=== PATIENT | female | born 1940 | race Caucasian/White ===

== ENCOUNTER → 2023-07-19 09:56 | Outpatient (REF) | payer MEDICARE, SELFPAY ==
[2023-07-19 10:27] LABS: % Basophils 0.8 % (0-2); % Eosinophils 3.5 % (0-6); % Immature Granulocytes 0.2 % (0-0.5); % Lymphocytes 18.3 % (20.5-51.1); % Monocytes 7.3 % (1.7-9.3); % Neutrophils 69.9 % (42.2-75.2); Absolute Eosinophils 0.2 10^3/uL (0-0.7); Absolute Lymphocytes 0.9 10^3/uL (1.2-3.4); Absolute Monocytes 0.4 10^3/uL (0.1-0.6); Absolute Neutrophils 3.6 10^3/uL (1.4-6.5); Hematocrit 32.9 % (37.0-47.0); Hemoglobin 11.1 g/dL (12.0-16.0); Mean Corp Hgb Conc. 33.7 g/dL (33.0-37.0); Mean Corpuscular Hgb 31.6 pg (27.0-31.0); Mean Corpuscular Volume 93.7 fL (81.0-99.0); Mean Platelet Volume 10.1 fL (7.4-10.4); Nucleated Red Blood Cells % 0 %; Platelet Count 220 10^3/uL (130-400); Red Blood Cell Count 3.51 10^6/uL (4.20-5.40); Red Cell Dist. Width 15.5 % (11.5-14.5); White Blood Cell Count 5.1 10^3/uL (4.8-10.8)
[2023-07-19 11:51] LABS: ALT (SGPT) 20 U/L (0-35); AST (SGOT) 36 U/L (14-36); Albumin 4.1 g/dl (3.5-5.0); Alkaline Phosphatase 83 U/L (38-126); Blood Urea Nitrogen 23 mg/dl (7-17); Calcium 9.2 mg/dl (8.4-10.2); Carbon Dioxide 24 mmol/L (22-30); Chloride 105 mmol/L (98-107); Glucose 85 mg/dl (70-99); Potassium 4.1 mmol/L (3.5-5.1); Sodium 136 mmol/L (135-145); Total Bilirubin 1.2 mg/dl (0.2-1.3); Total Protein 7.2 g/dl (6.3-8.2); eGFR > 60.00
== END ==
LOC: SDSPAT 09:56
PROVIDERS: ATTENDING PHYSICIAN Internal Medicine Cardiovascular Disease; FAMILY PHYSICIAN Internal Medicine; OTHER PHYSICIAN Internal Medicine Cardiovascular Disease
DX: Z01.818 Encounter for other preprocedural examination (principal); I48.21 Permanent atrial fibrillation; I35.0 Nonrheumatic aortic (valve) stenosis; I34.0 Nonrheumatic mitral (valve) insufficiency; I45.10 Unspecified right bundle-branch block
CPT/HCPCS: 36415; 80053; 85025

== ENCOUNTER 2023-07-21 15:48 | Inpatient (IN) | payer MEDICARE, SELFPAY ==
[2023-07-19 10:04] VITALS: BMI 30.6
[2023-07-21] VITALS (30 sets, daily range): BP systolic 114–184; BP diastolic 50–109; BMI 30.1
[2023-07-21] MEDS: NSS 1000 IV (11:10)
--- NOTE | 2023-07-21 11:20 | ITS.CL.CATH ---
Harness And Bag Inspector - Catheterization
Cardiac Catheterization
Procedure Report:
CARDIAC CATHETERIZATION REPORT
Date of Procedure: 07/21/2023
Referring: Kerwin Brennan MD
Indication: Symptomatic severe aortic stenosis with mild to moderate mitral regurgitation
HEMODYNAMIC DATA (RHC done at weight 186 pounds)
AO: 149/65
LV: 201/22
PCWP: 32 (v=53)
PA: 72/30
RV: 72/18
RA: 17
Oximetry: Ao 95%, PA 59%, cardiac output 3.5, cardiac index 1.8
Simultaneous left ventricular and aortic waveforms demonstrate severe aortic stenosis with mean gradient 48 mmHg and calculated YAEL 0.5 cm�
LEFT VENTRICULOGRAPHY: Severe inferior hypokinesis with EF 48%. There is 1+ mitral regurgitation
CORONARY ANGIOGRAPHY
Dominance: Right
Left Main: Calcified without focal stenosis
LAD: Moderate to severe proximal and mid LAD calcification with mild luminal irregularities
Circumflex: Mild luminal irregularities
RCA: Moderate to severe calcification of the proximal and mid RCA extending to the crux. There are mild luminal irregularities in the RCA and its tributaries
Closure Device: None-the procedure was performed via the RFA and RFV. The right radial artery was not used as the Yonathan's test was abnormal. Manual compression was used for hemostasis
Radiation dose (mGy): 3 of 6
DAP (cm2.Gy): 32.8
Fluoroscopy time: 3.7 minutes
CONCLUSIONS:
1. Elevated left and right heart filling pressures with moderate to severe pulmonary hypertension
2. Severe aortic stenosis with mean gradient 48 mmHg and calculated YAEL 0.5 cm�
3. Calcified coronary arteries without significant focal stenoses
4. Inferior hypokinesis with EF 48%
5. Mild mitral regurgitation
RECOMMENDATIONS: Evaluate for TAVR for severe symptomatic aortic stenosis. Continue current medical regimen for now. She may require the addition of diuretic therapy to her regimen
Copy to: Kerwin Brennan MD, Jb Mendoza MD
Grey Gee MD, FACC, [facility]
--- NOTE | 2023-07-21 12:00 | PTCARENOTE ---
Princess LLAMAS, TAVR coordinator, at pt bedside speaking to pt and pt's daughter.
[2023-07-21] MEDS: LASIX 20 MG IV (13:49)
--- NOTE | 2023-07-21 13:53 | PTCARENOTE ---
Addendum entered by Vangie Osuna RN 07/21/23 14:24:
While at pt bedside, Dr Gee made aware of pt's lungs with rales 1/3 up bilaterally and expiratory wheezes throughout. Pulse ox 91-94% on 2L NC
Original Note:
Dr Gee at pt bedside assessing pt and speaking to pt and pt's daughter.
--- NOTE | 2023-07-21 14:00 | PTCARENOTE ---
Pt states she is feeling more SOB. Dr Gee made aware and again at pt bedside. Pt appears to be slightly dyspneic. Dr Gee raised pt's head of bed all the way up. Pulse ox 91-92% on 2L NC. Oxygen increased to 4L NC as ordered per Dr Gee.
Lasix 20mg IVP already given as ordered. Dr Gee states to continue to monitor pt to see if there is improvement in pt's symptoms.
--- NOTE | 2023-07-21 14:07 | CONSULT.STRU ---
Consultation
-
Date/Time Consultation Requested: 07/21/2023 1100
Date/Time Consultation Performed: 07/21/2023 1130
Requesting Provider: Dr. Gee
Performing Provider: MURIEL Villalobos
Reason for Consultation: Aortic stenosis/ TAVR evaluation
Patient History
Physicians
Family Physician: Jb Mendoza
Outpatient Commercial Loan Reviewer: Kerwin Brennan
Primary Commercial Loan Reviewer: Kerwin Brennan
History of Present Illness
Patient is a very pleasant 82yo female who lives independently. She has know history of aortic stenosis and has been followed by Dr. Brennan with serial echocardiograms. A few [place] she woke up with a 'funny feeling' in her chest. She also does note
some increased fatigue and mild JC. Her echocardiogram from 01/03/2023 is notable for EF 60-65%, PG/MG of AV 67/42, YAEL 0.7, peak velocity 4.09. She was also noted to have moderate AI, Moderate MR and Severe TR. She underwent cardiac cath today
which demonstrated elevated left and right heart filling pressures with moderate to severe pulmonary hypertension. Severe aortic stenosis with mean gradient 48 mmHg and calculated YAEL 0.5 cm�. Calcified coronary arteries without significant focal
stenoses. Inferior hypokinesis with EF 48%
Mild mitral regurgitation. Request made by Dr. Gee to evaluate for TAVR.
Reviewed the pathophysiology of aortic stenosis with the patient and her daughter. Explained the treatment options of SAVR and TAVR. Explained the TAVR evaluation process including follow up BMP, CT TAVR scan, CT surgery consult and Heart Team
discussion. Provided with script for BMP next week, script and appointment for CT TAVR, Consult appointment with Dr. Last and a copy of the TAVR education booklet with contact information. Allowed for and answered questions.
Past Medical History
Past Medical History: Atrial Fib, JC, HTN, Valvular Disease (Severe , Mod AI, Mod MR, Severe TR) and Other (DJD, Obesity, Neuropathy, Uterine fibroid)
Past Surgical History
Past Surgical History: Cholecystectomy (1990) and Other (, PPM- [employer] 2008, changed 2020, Right BOO- Dr. Lovell2023, right cataract surgery)
Dental History
Regular dental care -Dr. Alfonso [phone]
Family History
Mother: at Age
Father: at Age
Social History
Alcohol: None
Drug: None
Tobacco: Non-Smoker
Personal: Single and
Living: Alone
Employment: Retired
Allergies
Allergy/AdvReac Type Severity Reaction Status Date / Time
latex [Latex] Allergy Rash Verified 07/21/23 08:45
Yyngpmo-TFD-MzK Reductase AdvReac Unknown liver Verified 07/21/23 08:45
Inhibitor enzymes
[Dglscfa-Apq-Bzj Reductase elevated
Inhibitor]
Home Medications
Medication Instructions Recorded Confirmed Type
dabigatran etexilate 150 mg 150 mg PO BID ##0 06/15/20 07/21/23 Rx
capsule (Pradaxa)
metoprolol tartrate 100 mg tablet 100 mg PO BID Heart 06/15/20 07/21/23 History
disease/condition
multivitamin 1 tab PO QPM Supplement 06/15/20 07/21/23 History
amlodipine 5 mg tablet 5 mg PO DAILY Blood pressure 06/16/22 07/21/23 History
aspirin 81 mg tablet,delayed 81 mg PO DAILY #60 tabs 06/29/22 07/21/23 Rx
release
antiseptic solution 1 pad topical DAILY 07/21/23 07/21/23 History
biotin 5,000 mcg chewable tablet 5,000 mcg PO QPM 07/21/23 07/21/23 History
lisinopril 40 mg tablet 40 mg PO QPM 07/21/23 07/21/23 History
peg 400-propylene glycol (PF) 0.4 1 drp ophthalmic (eye) DAILY 07/21/23 07/21/23 History
%-0.3 % eye drops in a dropperette
(Systane (PF))
rosuvastatin 5 mg tablet 5 mg PO DAILY 07/21/23 07/21/23 History
STS%
STS %: 5.27%
Review of Systems
-
History Source: Patient
General: Reports Fatigue
HEENT: Reports No Symptoms
Respiratory: Reports JC
Cardiac: Reports Known Vascular Disease (h/o Right CEA 2022) and Other (a-fib)
Abdomen/GI: Reports No Symptoms
: Reports No Symptoms
Musculoskeletal: Reports No Symptoms
Skin: Reports No Symptoms
Neurological: Reports No Symptoms
Vascular: Reports No Symptoms
Physical Exam
Vital Signs
Temp 98.6 F 07/21/23 08:35
Temp route: Oral 07/21/23 08:35
Pulse 68 07/21/23 13:49
Resp Rate 16 07/21/23 12:45
Blood pressure 164/55 07/21/23 13:49
Blood pressure extremity used: Right upper arm 07/21/23 12:15
Position: Lying 07/21/23 12:15
MAP (cuff-Yuri Monitor) 90 07/21/23 12:45
SaO2 93 07/21/23 12:45
Nasal Cannula flow liters per minute 2 07/21/23 12:45
Oxygen Mode of Delivery Room air 07/21/23 11:45
Can the patient verbally communicate their pain? Yes 07/21/23 12:45
Actual Weight 84.6 kg 07/21/23 08:44
Body Mass Index (BMI) 30.1 07/21/23 08:44
Labs
07/19/2023:
BUN/CREAT: 23/0.7
GFR: >60
H/H: 11.1/32.9
Diagnostic Studies
12/28/2022 Echocardiogram:
CONCLUSIONS
�Normal left ventricular size and systolic function.LV ejection fraction is 60-
�65%
�Normal right ventricular size and function.Pacer wire seen in right ventricle.
�Marked biatrial enlargement.
�Moderate mitral regurgitation.
�Severe aortic stenosis with moderate AI
�Severe tricuspid regurgitation (likely pacer wire mediated).
�Estimated pulmonary artery pressure of 84 mmHg.
�The aortic root is of normal size.
�Compared to prior study of 01/18/22 severe aortic stenosis is unchanged; TR may
�be increased from moderate, and previous estimated PA pressure was 65 mmHg.
�
�
�Indications:
�Nonrheumatic aortic (valve) stenosis, Nonrheumatic mitral (valve) insufficiency
�
�Rhythm: � � � � � � � � Atrial fibrillation
�
�Portable Study: � � � � No
�
�Technical Quality:� � � Fair
�
�Contrast: � � None
�
�BP:� � 160 � / � 68
�
�PROCEDURE
�A complete Transthoracic Echocardiogram was performed utilizing two-dimensional
�evaluation with color flow and spectral Doppler analysis.
�
�FINDINGS
�
�Left Ventricle
�Normal left ventricular size and systolic function. Mild concentric left
�ventricular hypertrophy.� No regional wall motion abnormalities are seen. LV
�ejection fraction is 60-65% by Jade's method of discs. Diastolic function
�indeterminate.
�
�Right Ventricle
�Normal right ventricular size and function. Pacer wire seen in right ventricle.
�
�Left Atrium
�Indexed LA volume is severely abnormal (> 48 mL/m2).
�
�Right Atrium
�Moderately dilated right atrium.
�
�Mitral Valve
�Mitral valve opens normally. Thickened mitral valve leaflets. Moderate mitral
�regurgitation.
�
�Aortic Valve
�Thickened aortic valve with restricted leaflet motion. Severe aortic stenosis.
�The peak gradient across the valve is 67 mmHg with a mean of 42 mmHg. Using a
�LVOT diameter of 1.9 cm, the YAEL is 0.7 cm sq. Moderate aortic regurgitation.
�
�Tricuspid Valve
�Tricuspid valve opens normally. Severe tricuspid regurgitation (likely pacer
�wire mediated). Estimated pulmonary artery pressure of 84 mmHg assuming a right
�atrial pressure of 15 mmHg.
�
�Pulmonic Valve
�Structurally normal pulmonic valve. Mild pulmonic regurgitation.
�
�Pericardium\\Pleura
�Normal pericardium without effusion.
�
�Aorta
�The aortic root is of normal size. Normal ascending aorta.
�
�Other Finding
�The IVC is dilated and does not collapse. Interatrial septum is intact with no
�evidence of shunting by color flow Doppler.
�
�MEASUREMENTS� (Male / Female) Normal Values
�2D ECHO
�LV Diastolic Diameter PLAX� � � � 4.3 cm� � � � � � � � 4.2 - 5.9 / 3.9 - 5.3 cm
�LV Systolic Diameter PLAX � � � � 2.9 cm� � � � � � � �
�IVS Diastolic Thickness � � � � � 1.0 cm� � � � � � � � 0.6 - 1.0 / 0.6 - 0.9 cm
�LVPW Diastolic Thickness� � � � � 1.0 cm� � � � � � � � 0.6 - 1.0 / 0.6 - 0.9 cm
�LV Relative Wall Thickness� � � � 0.5 � � � � � � � � �
�LVOT Diameter � � � � � � � � � � 1.9 cm� � � � � � � �
�LV Ejection Fraction MOD BP � � � 61.0 %� � � � � � � � >= 55� %
�LA Area 4C View � � � � � � � � � 35.9 cm2� � � � � � � <= 20 cm2
�LA Length 4C� � � � � � � � � � � 7.2 cm� � � � � � � �
�LA Volume � � � � � � � � � � � � 145.0 cm3 � � � � � � 18 - 58 / 22 - 52 cm3
�Ascending Aorta Diameter� � � � � 3.2 cm� � � � � � � �
�
�M-MODE
�Aortic Root Diameter MM � � � � � 2.8 cm� � � � � � � �
�LA Systolic Diameter MM � � � � � 6.1 cm� � � � � � � �
�LA Ao Ratio MM� � � � � � � � � � 2.2 � � � � � � � � �
�
�DOPPLER
�AV Peak Velocity� � � � � � � � � 409.0 cm/s� � � � � �
�AV Peak Gradient� � � � � � � � � 66.9 mmHg � � � � � �
�AV Mean Gradient� � � � � � � � � 41.0 mmHg � � � � � �
�AV Velocity Time Integral � � � � 103.8 cm� � � � � � �
�AI Peak Velocity� � � � � � � � � 434.0 cm/s� � � � � �
�AI Peak Gradient� � � � � � � � � 75.3 mmHg � � � � � �
�AI Pressure Half Time � � � � � � 454.5 ms� � � � � � �
�LVOT Peak Velocity� � � � � � � � 99.4 cm/s � � � � � �
�LVOT Peak Gradient� � � � � � � � 4.0 mmHg� � � � � � �
�LVOT Velocity Time Integral � � � 26.6 cm � � � � � � �
�AV Area Cont Eq vti � � � � � � � 0.7 cm2 � � � � � � �
�AV Area Cont Eq pk� � � � � � � � 0.7 cm2 � � � � � � �
�TR Peak Velocity� � � � � � � � � 349.0 cm/s� � � � � �
�TR Peak Gradient� � � � � � � � � 48.7 mmHg � � � � � �
�
�
07/21/2023 Cardiac Catheterization:
�HEMODYNAMIC DATA (RHC done at weight 186 pounds)
AO: 149/65
LV: 201/22
PCWP: 32 (v=53)
PA: 72/30
RV: 72/18
RA: 17
Oximetry: Ao 95%, PA 59%, cardiac output 3.5, cardiac index 1.8
Simultaneous left ventricular and aortic waveforms demonstrate severe aortic stenosis with mean gradient 48 mmHg and calculated YAEL 0.5 cm�
LEFT VENTRICULOGRAPHY: Severe inferior hypokinesis with EF 48%.� There is 1+ mitral regurgitation
CORONARY ANGIOGRAPHY
Dominance: Right
Left Main: Calcified without focal stenosis
LAD: Moderate to severe proximal and mid LAD calcification with mild luminal irregularities
Circumflex: Mild luminal irregularities
RCA: Moderate to severe calcification of the proximal and mid RCA extending to the crux.� There are mild luminal irregularities in the RCA and its tributaries
Closure Device: None-the procedure was performed via the RFA and RFV.� The right radial artery was not used as the Yonathan's test was abnormal.� Manual compression was used for hemostasis
Radiation dose (mGy): 3 of 6
DAP (cm2.Gy): 32.8
Fluoroscopy time: 3.7 minutes
CONCLUSIONS:
1.� Elevated left and right heart filling pressures with moderate to severe pulmonary hypertension
2.� Severe aortic stenosis with mean gradient 48 mmHg and calculated YAEL 0.5 cm�
3.� Calcified coronary arteries without significant focal stenoses
4.� Inferior hypokinesis with EF 48%
5.� Mild mitral regurgitation
RECOMMENDATIONS: Evaluate for TAVR� for severe symptomatic aortic stenosis.� Continue current medical regimen for now.� She may require the addition of diuretic therapy to her regimen
Exam
General: Well Developed and Well Nourished
HEENT: Normocephalic and Moist Mucous Membranes
Neck: Trachea Midline
Respiratory: Clear
Cardiac: Irregular Rhythm and Murmur (Grade III/)
GI: Soft, Non Tender and Normal Bowel Sounds
Rectal: Deferred by Provider
Skin: Warm
Neuro: Awake and AO x 3
Extremities: Lower Level Edema
Psych: Calm
Assessment / Plan
-
Severe Aortic stenosis:
��������������� Continue evaluation for TAVR as an outpatient
��������������� BMP 07/27/2023 at [facility]
��������������� CT TAVR scan 08/10/2023 at [facility] at
��������������� CT surgery consult with Dr. Last on 08/10/2023
��������������� Heart team discussion at [facility]
Dental Clearance
Data Reviewed
-
EKG: Report Reviewed by me
Interactive Media Designer: Discussed with Physician
Echo: Report Reviewed by me
Labs: Labs Reviewed by me
Old Records: Reviewed (Dr. Brennan office note)
Total Time Spent with Patient (in minutes): 45
--- NOTE | 2023-07-21 14:08 | PTCARENOTE ---
Emerita LLAMAS at pt bedside assessing pt and speaking to pt and pt's daughter.
--- NOTE | 2023-07-21 14:55 | PTCARENOTE ---
Addendum entered by Vangie Osuna RN 07/21/23 15:14:
Below note occurred at 1335 and not 1435 as documented. IVF's also turned off as ordered per Emerita LLAMAS.
Original Note:
Pt's pulse ox 89-92% on 2L NC. Pt's head of bed raised 20 degrees. Right groin dressing clean, dry, and intact. No bleeding or hematoma noted. Pt's lungs with rales 1/3 bilaterally and expiratory wheezes throughout. Emerita LLAMAS made aware and
ordered lasix 20 mg IVP. No respiratory treatment ordered at this time. Will administer lasix and continue to monitor pt.
--- NOTE | 2023-07-21 15:20 | PTCARENOTE ---
Emerita LLAMAS at pt bedside assessing pt. Pt remains at 4L NC. Pulse ox 94% on 4L NC. Emerita LLAMAS states pt is to be admitted to be monitored overnight. Pt is to be admitted. Will continue to monitor.
--- NOTE | 2023-07-21 16:18 | CM ---
Chart reviewed. Patient is independent of ADLS, lives alone at [facility], 2nd floor apartment with elevator access, ambulates with a SPC. Patient is not current with VN, but is interested. [facility]
--- NOTE | 2023-07-21 17:16 | PTCARENOTE ---
Pt received at 1600 post procedure. Right groin site drly and intact with no hematoma. Continues with mild sob. O2 on at 4LNC, reduced to 2LNC, sat 92 - 93%. Pt assisted to the bathroom, gait steady with a cane. Denies any pain or discomfort.
[2023-07-21] MEDS: ZESTRIL 40 MG PO (17:55)
[2023-07-21] MEDS: PRADAXA 150 MG PO (19:28)
[2023-07-21] MEDS: COREG 6.25 MG PO (19:28)
[2023-07-21] MEDS: DESENEX/MITRAZOL/ZEASORB 1 APPLIC TOPICAL (21:49)
[2023-07-22] VITALS (7 sets, daily range): BP systolic 101–121; BP diastolic 50–82; BMI 29.1
--- NOTE | 2023-07-22 01:04 | PTCARENOTE ---
Tele remains Afib and occasional Vpaced. VSS, and currently sating 92% RA. Denies any pain or discomfort. Right groin dressing intact. Patient aware of POC, call calderon in reach.
[2023-07-22 05:23] LABS: Hematocrit 31.9 % (37.0-47.0); Hemoglobin 10.8 g/dL (12.0-16.0); Mean Corp Hgb Conc. 33.9 g/dL (33.0-37.0); Mean Corpuscular Hgb 31.4 pg (27.0-31.0); Mean Corpuscular Volume 92.7 fL (81.0-99.0); Mean Platelet Volume 10.4 fL (7.4-10.4); Platelet Count 208 10^3/uL (130-400); Red Blood Cell Count 3.44 10^6/uL (4.20-5.40); Red Cell Dist. Width 15.3 % (11.5-14.5); White Blood Cell Count 6.3 10^3/uL (4.8-10.8)
[2023-07-22 05:45] LABS: Blood Urea Nitrogen 22 mg/dl (7-17); Calcium 9.2 mg/dl (8.4-10.2); Carbon Dioxide 24 mmol/L (22-30); Chloride 105 mmol/L (98-107); Estimated Creatinine Clearance 81 ml/min; Glucose 91 mg/dl (70-99); HDL Cholesterol 55 mg/dl; LDL Cholesterol, Calculated 39 mg/dl; Potassium 4.3 mmol/L (3.5-5.1); Sodium 137 mmol/L (135-145); Total Cholesterol 109 mg/dl (50-199); Triglyceride 75 mg/dl (10-149); Very Low Density Lipoprotein 15 mg/dl (0-30); eGFR > 60.00
[2023-07-22 05:52] LABS: NT-proBNP 5050 pg/ml
[2023-07-22] MEDS: KCL 20 MEQ PO (08:39)
[2023-07-22] MEDS: PRADAXA 150 MG PO ×2 (08:39→20:38)
[2023-07-22] MEDS: ASPIR LOW (ENTERIC COATED) 81 MG PO (08:39)
[2023-07-22] MEDS: CRESTOR 5 MG PO (08:40)
[2023-07-22] MEDS: DESENEX/MITRAZOL/ZEASORB 1 APPLIC TOPICAL ×2 (08:40→20:38)
[2023-07-22] MEDS: NORVASC 5 MG PO (08:40)
[2023-07-22] MEDS: COREG 6.25 MG PO ×2 (08:40→20:38)
[2023-07-22] MEDS: LASIX 40 MG IV (08:41)
--- NOTE | 2023-07-22 09:31 | W.PN.CD ---
Today's Communication / Plan
-
Con't IV diuresis
follow up labs in am
hold amlodipine with decreased BP's and severe
Impression / Plan
-
Pt feels SOB much better. LE edema has improved. She thinks weight prior to admit was around 186 lbs.
Severe :
-TAVR w/u in progress
-s/p LHC with calcified coronaries without significant focal stenosis
New HFpEF in setting of :
-admitted for IV diuresis
-pt feeling improved
-weight 07/21 84.6 kg now 81.7
-plan OP lasix and close follow up.
Permanent AF:
-rate control, on pradaxa.
SSS/AV bolck:
-PPM
Carotid disease:
-s/p R CEA 06/28/22
-statin
Mod MR/Severe TR
HTN:
-coreg added
-BP's decreased with diuresis and coreg
-hold amlodipine
Physical Exam
Vital Signs/Labs
Vital Signs
Temp Pulse Resp BP Pulse Ox
98.2 F 69 16 106/52 94
07/22/23 07:39 07/22/23 07:39 07/22/23 07:39 07/22/23 04:10 07/22/23 07:39
07/21/23 07/22/23 07/23/23
06:59 06:59 06:59
Actual Weight 81.7 kg
07/22/23 04:31
07/22/23 04:31
Triglycerides 75 mg/dl (10-149) 07/22/23 04:31
LDL Cholesterol, Calc 39 mg/dl 07/22/23 04:31
VLDL Cholesterol, Calc 15 mg/dl (0-30) 07/22/23 04:31
HDL Cholesterol 55 mg/dl 07/22/23 04:31
03/16/24
04:31
Syf-L-Dshevfuiuqi Pept 5050
Physical Exam
Constitutional: No acute distress
Cardiovascular: Rhythm/rate is irregular and Pedal edema present (mild bilat LE )
Respiratory: Respiratory effort normal and Lungs clear to auscul.
GI: Soft, Non tender and Normal bowel sounds
Neuro/Psych: AO x 3
Data Reviewed
-
Date of Service: July 22, 2023
EKG: Tracing Personally Visualized and interpreted (AF 73 bpm, ST and T wave abn ) and Other (Tele AF 80-90's )
Labs: Labs Reviewed by me and Labs Ordered by me
Old Records: Reviewed (OP cardiology notes)
--- NOTE | 2023-07-22 12:26 | W.DS.TRANS ---
DC Summary - Assistant Activities Director
-
Discharge Instructions:
Sleep Apnea Risk Intermediate
Discharge Diagnosis/Procedures Cardiac catheterization
Diet Low Cholesterol
Activity As tolerated
Driving Restrictions No driving for 24 hours
Blood Work PLEASE GET YOUR LAB WORK NEXT WEEK
Others Tests YOUR CT SCAN IS SCHEDULED FOR 08/10/2023 @ 9:45 AT
[facility]. NOTHING TO EAT OR DRINK 3
HOURS BEFORE YOUR SCAN. PLEASE BRING A LIST OF
YOUR MEDICATIONS. YOU MAY TAKE YOUR MORNING
MEDICATIONS BEFORE YOUR COME IN FOR YOUR SCAN.
YOU WILL NEED DENTAL CLEARANCE PRIOR TO YOUR
VALVE REPLACEMENT
Instructions:
Stand-Alone Forms: DC Instructions- Cath/EP Lab
Changes to Home Medications: Yes
Discharge Medications:
DC Medications w/original date entered in [employer]
dabigatran etexilate 150 mg capsule (Pradaxa) 150 mg PO BID ##0 06/15/20
multivitamin 1 tab PO QPM Supplement 06/15/20
aspirin 81 mg tablet,delayed release 81 mg PO DAILY #60 tabs 06/29/22
antiseptic solution 1 pad topical DAILY 07/21/23
biotin 5,000 mcg chewable tablet 5,000 mcg PO QPM Supplement 07/21/23
lisinopril 40 mg tablet 40 mg PO QPM Blood Pressure 07/21/23
peg 400-propylene glycol (PF) 0.4 %-0.3 % eye drops in a dropperette (Systane (PF)) 1 drp ophthalmic (eye) DAILY Eye Condition 07/21/23
rosuvastatin 5 mg tablet 5 mg PO DAILY High Cholesterol 07/21/23
Home Medication Changes
Stop amlodipine
Stop metoprolol
New carvedilol 6.25mg 1 tab by mouth twice daily
New furosemide 20mg by mouth daily
Pending Results: No
[2023-07-22] MEDS: ZESTRIL 40 MG PO (16:52)
--- NOTE | 2023-07-22 16:53 | PTCARENOTE ---
assessment as documented, stable with no complaints. OOB most of day.
[2023-07-23 04:37] VITALS: BP 112/47
[2023-07-23 05:02] LABS: Hematocrit 28.3 % (37.0-47.0); Hemoglobin 9.6 g/dL (12.0-16.0); Mean Corp Hgb Conc. 33.9 g/dL (33.0-37.0); Mean Corpuscular Hgb 31.4 pg (27.0-31.0); Mean Corpuscular Volume 92.5 fL (81.0-99.0); Mean Platelet Volume 10.1 fL (7.4-10.4); Platelet Count 177 10^3/uL (130-400); Red Blood Cell Count 3.06 10^6/uL (4.20-5.40); Red Cell Dist. Width 15.3 % (11.5-14.5); White Blood Cell Count 4.1 10^3/uL (4.8-10.8)
[2023-07-23 05:25] LABS: Blood Urea Nitrogen 29 mg/dl (7-17); Calcium 8.8 mg/dl (8.4-10.2); Carbon Dioxide 25 mmol/L (22-30); Chloride 103 mmol/L (98-107); Estimated Creatinine Clearance 69 ml/min; Glucose 91 mg/dl (70-99); Sodium 136 mmol/L (135-145); eGFR > 60.00
[2023-07-23 05:53] VITALS: BMI 28.9
[2023-07-23 06:59] VITALS: BP 120/46
--- NOTE | 2023-07-23 08:16 | W.PN.CD ---
Today's Communication / Plan
-
discharge today
Impression / Plan
-
Severe :
-TAVR w/u in progress
-s/p LHC with calcified coronaries without significant focal stenosis
New HFpEF in setting of :
-d/c on lasix 20 mg po daily
-pt feeling improved
-weight 07/21 84.6 kg now 81.7
-plan OP lasix and close follow up.
Permanent AF:
-rate control, on pradaxa.
SSS/AV bolck:
-PPM
Carotid disease:
-s/p R CEA 06/28/22
-statin
Mod MR/Severe TR
HTN:
-coreg added
-BP's decreased with diuresis and coreg
-hold amlodipine
Physical Exam
Vital Signs/Labs
Vital Signs
Temp Pulse Resp BP Pulse Ox
98.5 F 80 20 112/47 96
07/23/23 06:56 07/23/23 05:00 07/23/23 06:56 07/23/23 04:37 07/23/23 06:56
07/22/23 07/23/23 07/24/23
06:59 06:59 06:59
Actual Weight 180 lb 1.883 oz 178 lb 12.718 oz
07/23/23 04:42
07/23/23 04:42
Triglycerides 75 mg/dl (10-149) 07/22/23 04:31
LDL Cholesterol, Calc 39 mg/dl 07/22/23 04:31
VLDL Cholesterol, Calc 15 mg/dl (0-30) 07/22/23 04:31
HDL Cholesterol 55 mg/dl 07/22/23 04:31
07/22/23
04:31
Mrj-G-Jfnkobjcnid Pept 5050
Physical Exam
Constitutional: No acute distress
EENT: Anicteric
Cardiovascular: Rhythm & rate is regular and Systolic murmur present
Respiratory: Respiratory effort normal and Lungs clear to auscul.
GI: Soft
Neuro/Psych: AO x 3
Data Reviewed
-
Date of Service: July 23, 2023
EKG: Tracing Personally Visualized and interpreted
Labs: Labs Reviewed by me
[2023-07-23] MEDS: CRESTOR 5 MG PO (08:21)
[2023-07-23] MEDS: KCL 20 MEQ PO (08:22)
[2023-07-23] MEDS: PRADAXA 150 MG PO (08:22)
[2023-07-23] MEDS: ASPIR LOW (ENTERIC COATED) 81 MG PO (08:22)
[2023-07-23] MEDS: LASIX 40 MG IV (08:22)
[2023-07-23] MEDS: COREG 6.25 MG PO (08:22)
[2023-07-23] MEDS: FLUSH (NSS) 1 FLUSH IV (08:23)
[2023-07-23] MEDS: DESENEX/MITRAZOL/ZEASORB 1 APPLIC TOPICAL (08:23)
[2023-07-23 11:31] VITALS: BP 115/43
--- NOTE | 2023-07-23 15:14 | PTCARENOTE ---
D/C instructions given to patient and daughter, both verbalizes understanding. patient did ask if she needs to take potassium with her lasix, TT Dr. Fields and he replied no. faxed D/C instructions to [facility]. telemetry D/C'd, INT D/C'd, personal
belongings packed and sent home with patient. D/C to home via wc accompanied by staff.
== END 2023-07-23 15:30 | disposition home or self-care (01) | DRG 287 ==
LOC: IVU 15:48
PROVIDERS: Nurse Practitioner; ADMITTING PHYSICIAN Internal Medicine Cardiovascular Disease; FAMILY PHYSICIAN Internal Medicine
PROC: B2111ZZ Fluoroscopy of Multiple Coronary Arteries using Low Osmolar Contrast (ICD-10-PCS; 2023-07-21)
PROC: B2141ZZ Fluoroscopy of Right Heart using Low Osmolar Contrast (ICD-10-PCS; 2023-07-21)
PROC: 4A023N8 Measurement of Cardiac Sampling and Pressure, Bilateral, Percutaneous Approach (ICD-10-PCS; 2023-07-21)
DX: I11.0 Hypertensive heart disease with heart failure (principal); I48.21 Permanent atrial fibrillation; I50.30 Unspecified diastolic (congestive) heart failure; I08.3 Combined rheumatic disorders of mitral, aortic and tricuspid valves; Z79.01 Long term (current) use of anticoagulants; G62.9 Polyneuropathy, unspecified; I27.20 Pulmonary hypertension, unspecified
CPT/HCPCS: 36415; 80048; 80053; 80061; 83880; 85025; 85027; 93005; 93460; C1894; Q9967

== ENCOUNTER → 2023-07-27 13:38 | Outpatient (REF) | payer MEDICARE, SELFPAY ==
[2023-07-27 14:50] LABS: Blood Urea Nitrogen 29 mg/dl (7-17); Calcium 9.9 mg/dl (8.4-10.2); Carbon Dioxide 26 mmol/L (22-30); Chloride 100 mmol/L (98-107); Glucose 97 mg/dl (70-99); Potassium 4.4 mmol/L (3.5-5.1); Sodium 136 mmol/L (135-145); eGFR > 60.00
== END ==
LOC: REG 13:38
PROVIDERS: ATTENDING PHYSICIAN Nurse Practitioner Acute Care; FAMILY PHYSICIAN Internal Medicine
DX: I35.0 Nonrheumatic aortic (valve) stenosis (principal)
CPT/HCPCS: 36415; 80048

== ENCOUNTER → 2023-08-10 09:48 | Outpatient (REF) | payer MEDICARE, SELFPAY ==
--- NOTE | 2023-08-21 10:54 | OID.L.PAT ---
Pulmonary Nodule Pat Letter
- -
08/21/23
CHARLOTTE RANGEL
[address]
[facility] [address]
[place], [place] [address]
Padilla PORTER,
A pulmonary nodule was seen on an imaging study done by [facility]. This was reviewed by the [facility] Pulmonary Nodule Advisory Board and the following recommendation was made:
Recommendation: CT of the Chest in 3 months
If you have any questions, please do not hesitate to contact your primary care physician. If you are in need of a Physician, you can go to [email or web address] and click on 'Find a Provider'. Type 'Family Medicine' in the search.
Oncology Nurse Navigator
[facility]
[phone]
--- NOTE | 2023-08-21 10:56 | OID.L.REC ---
Pulmonary Nodule Follow Up
- Recommendation
08/21/23
Pulmonary Nodule Review Recommendations
Your patient, CHARLOTTE RANGEL, had a pulmonary nodule on an imaging study done on 08/10/2023 in the [facility].
This was reviewed by the [facility] Pulmonary Nodule Advisory Board and the following recommendation was made:
Recommendation: CT of the Chest in 3 months
If you have any questions please do not hesitate to contact us.
Sincerely,
Oncology Nurse Navigator
[facility]
[phone]
== END ==
LOC: RAD 09:48
PROVIDERS: ATTENDING PHYSICIAN Nurse Practitioner Acute Care; FAMILY PHYSICIAN Internal Medicine; REFERRING PHYSICIAN Nurse Practitioner Adult Health
DX: I35.0 Nonrheumatic aortic (valve) stenosis (principal)
CPT/HCPCS: 74174; 75572; Q9967

== ENCOUNTER → 2023-08-22 10:51 | Outpatient (REF) | payer MEDICARE, SELFPAY | LOC: RAD 10:51 | PROVIDERS: ATTENDING PHYSICIAN Surgery Vascular Surgery; FAMILY PHYSICIAN Internal Medicine | DX: I65.23 Occlusion and stenosis of bilateral carotid arteries (principal) | CPT/HCPCS: 93880 ==

== ENCOUNTER 2023-09-14 05:15 | Inpatient (IN) | payer MEDICARE, SELFPAY ==
--- NOTE | 2023-08-30 10:25 | HPS.HSE ---
Family Physician
-
Family Physician: Jb Mendoza
Cardiology: Kerwin Brennan
Chief Complaint
-
Fatigue and HARTMAN
History of Present Illness
Tiffany Reese is a pleasant 83-year-old female with known progressive aortic valve stenosis. Her most recent echocardiogram was notable for a peak/mean gradient of 67/41 mmHg. YAEL was calculated to be 0.7 and peak velocity was just above 4 m/s.
Her left heart catheterization revealed calcified coronary arteries without significant coronary disease or stenosis. An invasive mean gradient was performed and revealed a mean gradient of 48 calculating out to an YAEL of 0.5, cardiac index that
time was 1.8 with severely elevated right and left heart pressures with moderate to severe pulmonary hypertension. From a symptomatology standpoint, she describes some fatigue, hartman. In comparison to 1 year ago, she feels worse and has had an episode
of volume overload/edema following her cardiac cath, requiring diuresis. Functionally, she is good. She does need a cane to ambulate secondary to lower extremity neuropathy. Her studies were reviewed and case discussed by the heart team at the
shared decision making meeting and TAVR was felt to be the appropriate treatment.
Patient seen and assessed in preadmission testing. Risks of TAVR including bleeding and stroke were reviewed. Patient has a PPM. Allowed for and answered questions. Patient will arrive at 0530 on 09/14/2023 for her TAVR procedure. Last dose of Pradaxa
will be Sunday 09/10 and she will continue on her aspirin 81mg daily and take the morning of her TAVR prior to arrival. She is aware she will receive a call on 09/13/2023 to review and confirm procedure time. Allowed for and answered questions.
Medical History
Past Medical History
Past Medical History: Reports Arrhythmia (A-fib (C2V: 5) -Pradaxa), CHF, HTN, Hypercholesterolemia, Valvular Disease (Aortic stenosis, Mitral Regurgitation) and Other (Neuropathy, Obesity, Right carotid stenosis, uterine fibroids)
Past Surgical History: Reports Cardiac (Single chamber Medtronic PPM (2008, Changed 2020)), Cholecystectomy (1990) and Other
Additional Past Surgical History:
Right carotid endarterectomy (2022)
Right cataract surgery (2022)
Social History
Tobacco: Non-smoker
Alcohol: None
Drug: None
Personal: Single
Living: Alone (Daughter helps with care)
Employment: Retired
Family History
Family History: Not pertinent
Allergies / Home Medications
Allergies reflects when Allergies were last updated in [employer].
Home Medications with original date entered in [employer]
Allergy/Medication List:
Allergies:
Latex
Statins
Medications:
Acetaminophen 500 MG Tablet 1 tablet as needed Orally every 6 hrs.�������
Amoxicillin 500 MG Capsule 4 Orally 1 hour before proceedure, Notes: PRN.�������
Aspirin 81 81 MG Tablet Delayed Release 1 tablet Orally Once a day.�������
Biotin 5000 MCG Capsule 1 capsule Orally Once a day.�������
Carvedilol 6.25 MG Tablet 1 tablet with food Orally Twice a day.�������
Colace(Docusate Sodium) 100 MG Capsule 1 capsule as needed Orally Once a day.�������
Daily Multiple Vitamins(Multiple Vitamin) - Tablet 1 tablet Orally Once a day.�������
Lasix(Furosemide) 20 MG Tablet 1 tablet Orally Once every other day.�������
Lisinopril 40 MG Tablet TAKE 1 TABLET BY MOUTH EVERY DAY.�������
OcuSoft Dry Eye.�������
Pradaxa(Dabigatran Etexilate Mesylate) 150 MG Capsule 1 capsule Orally Twice a day.�������
Rosuvastatin Calcium 5 MG Tablet 1 tablet Orally Once a day.�������
Systane(Polyethyl Glycol-Propyl Glycol) 0.4-0.3 % Solution as directed Ophthalmic.�������
Triamcinolone Acetonide 0.1 % Ointment 1 application to affected area Externally Twice a day as needed, Notes: PRN.
Review of Systems
-
History Source: Patient
Constitutional: Reports Fatigue
EENT: Reports No Symptoms
Respiratory: Reports No Symptoms
Cardiac: Reports No Symptoms
Abdomen/GI: Reports No Symptoms
: Reports No Symptoms
Musculoskeletal: Reports Edema (chronic bilateral LE edema. Left > Right)
Skin: Reports No Symptoms
Neurological: Reports No Symptoms
Endocrine: Reports No Symptoms
Hematologic/Lymphatic: Reports No Symptoms
Psych: Reports No Symptoms
Physical Exam
Physical Exam
General: Well Developed, Well Nourished, No Apparent Distress and Comfortable
HEENT: NormoCephalic and Moist mucous membranes
Respiratory: Clear and Non Labored Respirations
Cardiac: S1/S2, Irregular Rhythm and Murmur (Grade III/)
Breast: Deferred by me
GI: Soft, Non Tender, Non Distended and Normal Bowel Sounds
Rectal: Deferred by Provider
Genito-urinary: Deferred by me
Musculoskeletal: No Clubbing, No Cyanosis, Edema, Left Lower Extremity (+2-3 pitting) and Edema, Right Lower Extremity (+2 pitting)
Skin: Warm
Neuro: AO x 3, No Motor Deficits and Nonfocal/grossly intact
Psych: Calm and Intact Judgment/Insight
Laboratory Results
-
H/H: 10.0/ 29.5
BUN/Creat: 28/0.7
GFR > 60
Albumin : 3.9
Data Reviewed
-
Diagnostic Radiology: Report Reviewed by me (Chest X-ray)
CT Scan: Report Reviewed by me (Reviewed TAVR CT report as well as the incidental findings. Copy of report and images given to patient for follow up with PCP on 09/03.)
Medical Tests (Nuc Med, Echo, EKG etc): Report Reviewed by me (EKG - afib with competing junctional pacemaker)
Lab Data: Labs Reviewed by me
Old Records: Reviewed (micro lab analyst report, CT surgery consult note)
Impression/Plan
-
IMPRESSION:
Severe, symptomatic aortic stenosis
PLAN:
-TF-TAVR utilizing an Evolut valve
-POD #1/#30 echocardiogram
-Cardiac rehab consult
-Resume Pradaxa for A-fib when appropriate
[2023-08-30 12:14] VITALS: BMI 27.8
[2023-08-30 13:08] LABS: Urine Albumin Negative (Neg - Trace); Urine Bilirubin Negative (Negative); Urine Character Clear (Clear); Urine Color Yellow; Urine Glucose Negative (Negative); Urine Ketone Trace (Negative); Urine Leukocyte Negative (Negative); Urine Nitrite Negative (Negative); Urine Occult Blood Negative (Negative); Urine Urobilinogen Negative (Neg - 1+)
[2023-08-30 13:10] LABS: % Basophils 0.4 % (0-2); % Eosinophils 4.5 % (0-6); % Immature Granulocytes 0.2 % (0-0.5); % Lymphocytes 13.2 % (20.5-51.1); % Monocytes 7.2 % (1.7-9.3); % Neutrophils 74.5 % (42.2-75.2); Absolute Eosinophils 0.2 10^3/uL (0-0.7); Absolute Lymphocytes 0.6 10^3/uL (1.2-3.4); Absolute Monocytes 0.4 10^3/uL (0.1-0.6); Absolute Neutrophils 3.6 10^3/uL (1.4-6.5); Hematocrit 29.5 % (37.0-47.0); Mean Corp Hgb Conc. 33.9 g/dL (33.0-37.0); Mean Corpuscular Hgb 31.4 pg (27.0-31.0); Mean Corpuscular Volume 92.8 fL (81.0-99.0); Mean Platelet Volume 10.3 fL (7.4-10.4); Nucleated Red Blood Cells % 0 %; Platelet Count 225 10^3/uL (130-400); Red Blood Cell Count 3.18 10^6/uL (4.20-5.40); Red Cell Dist. Width 13.2 % (11.5-14.5); White Blood Cell Count 4.9 10^3/uL (4.8-10.8)
[2023-08-30 13:20] LABS: INR 1.93; PT 22.3 Sec (11.4-14.6)
[2023-08-30 13:21] LABS: APTT 73.2 Sec (23.4-35.0)
[2023-08-30 13:42] LABS: ALT (SGPT) 13 U/L (0-35); AST (SGOT) 36 U/L (14-36); Albumin 3.9 g/dl (3.5-5.0); Alkaline Phosphatase 76 U/L (38-126); Blood Urea Nitrogen 28 mg/dl (7-17); Calcium 9.5 mg/dl (8.4-10.2); Carbon Dioxide 24 mmol/L (22-30); Chloride 105 mmol/L (98-107); Direct Bilirubin 0.4 mg/dl (0.0-0.4); Estimated Creatinine Clearance 66 ml/min; Glucose 95 mg/dl (70-99); Potassium 4.4 mmol/L (3.5-5.1); Sodium 134 mmol/L (135-145); Total Bilirubin 0.7 mg/dl (0.2-1.3); Total Protein 7.2 g/dl (6.3-8.2); eGFR > 60.00
[2023-08-30 13:50] LABS: NT-proBNP 2730 pg/ml
--- NOTE | 2023-08-30 15:22 | CM ---
CM met w/ patient and dtr.Jeanna during PATs for planned TAVR, 09/13.
Pt. resides alone in [facility]; 1 story apartment, elevator accessible. Patient is functionally indep. w/ use of a SPC. Pt. does not drive. Pt. informs that she is open to [facility] for home nursing and is pleased w/ them.
Reviewed pre and post op routines.
Soap, shower instructions and TAVR booklet provided.
Reviewed post op restrictions to include lifting and driving restrictions.
Discussed post op MD appointments, Cardiac Rehab, and visit from CT Transitional Care RN.
Plan is for TAVR 09/13
Anticipated DC plan is for home w/ CT Transitional Care RN (dtr. to check in).
[2023-08-31 09:23] LABS: Glycohemoglobin (HgbA1c) 5.5 % (4.0-5.6)
[2023-09-14] VITALS (28 sets, daily range): BP systolic 80–184; BP diastolic 39–123; PULSE 87; BMI 26.1
--- NOTE | 2023-09-14 06:17 | PTCARENOTE ---
Pt rec'd as direct adm with daughter at her side. adm hx taken. 20 g placed in right forearm. shave prep completed followed by CHG wipes to entire body. Afib with BBB on telemetry.
left and right b/p's documented. neuro check wnl. permits signed, seen by Dr Last
--- NOTE | 2023-09-14 06:20 | W.CVOR.SURPR ---
CVOR Surgeon Immed Pre Op
-
I have examined this patient prior to performance of the scheduled procedure.
The patient's condition is unchanged from the time of the dictated/written History and
Physical and the patient is able to undergo the scheduled procedure.
TF TAVR
Full Rescue
[2023-09-14 08:19] LABS: ACT-LR - POC 316 Seconds (116-155)
[2023-09-14 08:45] LABS: ACT-LR - POC 269 Seconds (116-155)
--- NOTE | 2023-09-14 09:03 | W.PN.CT.SURG ---
CT Surgery Operative Note
-
OPERATIVE REPORT
Preoperative Diagnosis: Severe aortic valve stenosis, symptomatic
Postoperative Diagnosis: Same
Procedure(s) Performed: Right trans femoral TAVR with a 26 mm Medtronic Evolut FX device with post deployment balloon dilatation
Date of Procedure: 09/14/2023
Comorbidities:
1. Severe symptomatic aortic stenosis
Cardiac Surgeon: González Last MD, MS
Supervisor [employer]: Fran Gee MD
Anesthesia: Conscious Sedation, Local
EBL: 150cc
Products: none
Implant: Medtronic Evolut FX, 26mm SN: [id number]
Indication(s) for Procedures: 83-year-old female with severe aortic stenosis. Symptomatic. CT-TAVR protocol revealed acceptable anatomy for a self-expanding TAVR valve.
Start time: 0743hrs
Deployment time: 0821hrs
End time: 0853hrs
Radiation Dose (mGy): 328.27
DAP (cm2.Gy): 54.4621
Fluoroscopy time (minutes): 20.5
Contrast volume (ml): 147
TAVR gradient (mmHg): 5mmHg
Heparin Dose: 7000units
Protamine Dose: 20mg
Final Valve Positioning: R 3mm: L 1mm
Findings: Preoperative LVEF was 60% and was 60% following TAVR without inotropic support. Function was overall normal without regional wall motion abnormalities or dyskinesia. The aortic valve was well seated but initially had moderate to severe PVL
with an aortic regurgitation index of 0.21. Following post deployment balloon dilatation x 2, there was trace to mild residual paravalvular leak which we excepted. The patient did require a short run of pacing postoperative but after resumed their
[place] rhythm and already had a pacemaker in place. There was successful placement of 26 mm Evolut FX TAVR valve without acute complications.
Access:
1. Device -right common femoral artery, perclose x 2
2. Pigtail -right radial + TR band
3. Transvenous Pacer -left common femoral vein
Description of Procedure: The patient was taken to the laboratory engineer. Their identity and procedure to be performed were verified and they were positioned supine on the laboratory engineer table. Induction via conscious sedation with local analgesia. The patient was
then prepped and draped from chin to thigh in a sterile fashion. A preoperative time-out was performed with all members of the team present. Using fluoroscopy, bilateral femoral heads and their margins were identified. Arterial and venous access
were done with a micropuncture needle with Seldinger technique. The right radial was used for pigtail site. Test pacing revealed capture with excellent threshold. Angiography confirmed proper puncture site and femoral artery integrity. Two
Per-Close devices were used on the TAVR side. An AL1 catheter was used to deliver a extrastiff wire and insertion of the working sheath. An AL1 catheter with a straight stiff wire was used initially but ultimately we were able to cross with a J-wire
to access the LV. The AL catheter was in exchange for a pigtail catheter which point measured LVEDP which was not significantly elevated. We then placed a Lunderquist wire with a curved towards the apex. The valve was prepped and mounted on to
the device carrier. An ACT of >250 was achieved. We verified x 3 under fluoroscopy that the valve was mounted correctly with paddles in appropriate position. We than set our parameters to achieve a co-planar view with the pigtail positioned in the
NCC. We advanced the device with it's in-line sheath into the descending thoracic aorta and over the arch into the root and positioned across the aortic valve. Contrast fluoroscopy was used to visualize the prosthesis across the valve. We performed
a quick pre-deployment time out. We verified positioning based on the pigtail and gentle contrast puffs. The valve was slowly deployed to just before annular contact. We paused here and verified positioning in our cusp overlap view. The pacer was
turned on and we continued deployment to annular contact. At this point the valve was functioning and pacing was stopped. We were quite shallow in the left coronary cusp and almost 1 mm to 0 mm on the right coronary cusp and so we recaptured twice
here and then we verified the position of the noncoronary cusp. At this point the left coronary cusp look more acceptable and so we slowly continued to deploy the valve until the crowns and paddles were free from the device in the CUBAN view. The
deployment device was withdrawn into the descending thoracic aorta while maintaining wire access across the valve. A transthoracic echocardiogram was performed and we found there was moderately severe PVL. We changed the device for the original 14F
and performed a post deployment dilatation with a 23mm balloon. There was still residual PVL, and so we placed the balloon deeper into the LVOT. Following this post dil, we found a significant improvement in the PVL to trace-mild. The pigtail was
re-positioned at the level of the crown of the valve and angiography revealed acceptable placement and seating of the valve at the annulus with no visible AI. The device was removed from the groin as we cinched down the perclose devices while
maintaining wire access. There was acceptable hemostasis. All wires were removed and perclose snugged and cut. There was acceptable hemostasis of bilateral groins. After completion of the procedure and while holding pressure on the groins, she
became hypotensive. The groins were re-prepped and a 6Fr sheath was inserted into the L CRISIS MANAGER and we performed angiography which did not reveal any extravasation, dissection, or new AI of the valve. An echocardiogram was repeated and she had no
pericardial effusion. A new 6F sheath was left in the L CRISIS MANAGER for monitoring. She had correlation of her cuff and arterial bps.
All instrument, sponge, and needle counts were confirmed to be correct x 2 at the end of the operation. The patient was transferred to the cardiac intensive care unit in stable condition.
I, Dr. González Last, was present, scrubbed for, and performed all critical elements of this procedure.
González Last MD, MS
Cardiothoracic Surgeon
[facility]
This operative dictation was created using the [employer] dictation system. Please excuse any grammatical, typographical, or 'sound alike' errors
[2023-09-14 09:24] LABS: B.E. - POC -4.4 mmol/L; Glucose - POC 130 mg/dl (65-99); HCO3 - POC 21 mmol/L (21-29); Hematocrit - POC 30 % PCV (37-47); Hemodilution- POC Yes; Hemoglobin Calculated - POC 10.2; Ionized Calcium - POC 1.54 mmol/L (1.12-1.27); O2 Saturation %Calculated-POC 99.4 5 (92-96); PCO2 - POC 39 mmHg (35-45); PO2 - POC 165 mmHg (80-100); Potassium - POC 3.6 mmol/L (3.6-5.0); Sodium - POC 136 mmol/L (135-145); pH - POC 7.34 (7.35-7.45)
[2023-09-14 09:25] LABS: ACT-LR - POC 179 Seconds (116-155)
--- NOTE | 2023-09-14 09:49 | W.PN.UPDATE ---
Update Note
Progress Note Update
Reviewed Ms. Reese with the heart team in the preTAVR SDM meeting and confirmed a 26mm Evolut via right transfemoral access. Patient will resume pradaxa and aspirin post TAVR. LVEDP 15mmHg. #26mm Evolut (serial# [id number]) successfully deployed.
Post implant MG 5mmHg.
--- NOTE | 2023-09-14 10:21 | CM ---
Reviewed chart. Ms. Reese is in the operating room today. Prior to admission she resides alone in an apartment at [facility]. She has an elevator access. Prior to admission she ambulated with a single point cane and independent with ADLS. She
has a single point cane at home. She has a prescription plan and uses [facility]. Medical work-up in progress. The discharge plan is to return home with a home visit by the Cardiothoracic Transitional Care Nurse when medically stable.
[2023-09-14] MEDS: REFRESH EYE DROPS (PF) BOTH EYES (10:25)
[2023-09-14] MEDS: ANCEF 10 IV ×2 (10:25)
--- NOTE | 2023-09-14 10:37 | PTCARENOTE ---
Assumed patient from TAVR team, AAO x 3. Shivering. A fib 100's on monitor 100's. Hypertensive 200 systolic. Cardene order obtained, will initiate. 92 % on room air. Placed on 2 L NC 96%. Denies cough or sob. LT femoral Arterial line
inplace, line leveled and transduced. RT radial Arterial band intact. RT femoral site dressing c,d,i. Neuro check wnl. Pulses palpable.
[2023-09-14] MEDS: ASPIR LOW (ENTERIC COATED) PO (10:56)
[2023-09-14] MEDS: CRESTOR PO (10:56)
--- NOTE | 2023-09-14 11:10 | ITS.CL.TAVR ---
Pearl Technician - TAVR Report
TAVR PRocedure
Procedure Report:
TRANSCATHETER AORTIC VALVE REPLACEMENT REPORT
Date: 09/14/2023
Referring physician: Kerwin Brennan MD
Operators: Grey Gee MD, González Last MD
Procedure: Conscious sedation was provided by anesthesia. Using a micropuncture technique, 6F LFV and right radial artery sheaths were placed. We opted for radial access as the left femoral bifurcation is very high. A 6 Turkish sheath was placed
into the right femoral artery and angiography showed a high common femoral artery puncture location appropriate for use for TAVR. A transvenous pacemaker was placed into the RV apex with excellent thresholds. A pigtail catheter was advanced via the
right radial artery to the aortic root and low-volume injections performed to identify a cusp overlap angle for valve deployment. Access was then obtained in the RFA using the micropuncture technique. Injection into the RFA sheath was performed to
confirm a common femoral artery puncture site. Heparin 4000 units was administered. At this point, two Perclose sutures were preset using the preclose technique. We then placed an 8 Turkish sheath. Following use of a 12 Turkish dilator, a 14 Turkish
short Cook sheath was exchanged into the RFA.Heparin 3000 units was administered. The valve was crossed with an AL 1 diagnostic catheter and a 0.035 table J wire. A double curve Lunderquist wire was advanced into the LV apex. The 14 F sheath was
removed and exchanged for a 26 mm Medtronic Evolute pro valve with in-line sheath. The valve was carefully advanced around the aortic arch and across the valve. Once ideal valve positioning was confirmed, the valve was very slowly deployed with
ventricular pacing at 100-120 per minute. The result was evaluated with both aortography and echocardiography which demonstrated moderate aortic insufficiency. We consider this unacceptable. Accordingly, post dilation of the valve was accomplished
with a 23 mm Z-Med balloon. Following the first inflation, the degree of aortic regurgitation remained unacceptable (moderate). A second inflation was then performed and the degree of aortic insufficiency was mild. Of note, the gradient was only
5 mmHg. The valve deployment system was removed and hemostasis achieved with the 2 Perclose sutures. The right radial artery sheath was removed. The transvenous pacemaker was removed and the venous sheath removed from the left femoral vein.
Protamine 20 mg was administered as the ACT was 269 at the procedure conclusion.
About 10 minutes following the conclusion of the procedure while manual compression was being done to facilitate the right femoral artery closure and primary manual compression was being done following removal of the 6 Turkish left femoral venous
sheath, the patient became hypotensive with systolic blood pressure 48-60. This required treatment with boluses of phenylephrine but did not respond quickly. We obtained a stat echo showing no significant pericardial effusion with the valve in
good position and unchanged compared with the prior study. At this point I was concerned about possible retroperitoneal hemorrhage from the right femoral puncture site. We had been unable to image this with an angiogram earlier because the
descending aorta could not be accessed from the right radial artery approach. Due to the persisting hypotension, decision was made to proceed with emergent angiography with an eye toward either prolonged balloon angioplasty or placement of a
covered stent if there was evidence of extravasation from the right femoral artery puncture site. The left femoral artery was accessed on the first attempt with a micropuncture needle and a 6 Turkish sheath was placed. Initial arterial pressure was
160/70. The patient remained normotensive for the duration of the procedure. A pigtail catheter was placed in the distal descending aorta and aortography performed with right iliofemoral runoff showing no evidence of extravasation with brisk flow
into the femoral bifurcation. The pigtail was then advanced to the aortic root and aortography performed demonstrating no evidence of ascending dissection and no detectable aortic insufficiency. Finally, an arch angiogram was done also suggesting
no evidence of dissection.
The indwelling left femoral arterial sheath was left in place for monitoring with a plan to remove in a few hours with manual compression.
Radiation
Dose (mGy): 450
DAP (cm2.Gy):54
Fluoro time: 21.8
Conclusion: Successful placement of 26mm CoreValve Evolute Pro using a right percutaneous transfemoral approach. Transient post procedure hypotension was evaluated with distal aortography, ascending aortography and arch aortography. There was no
evidence of a cause for the transient hypotension which had resolved by the time the patient was prepped and draped for the second procedure. The cause may have been a vagal reaction as the patient has a PPM so was pacing at 60/min when hypotensive
OR possibly a protamine reaction.
Grey Gee M.D.
Copy : Kerwin Brennan MD, Jb Mendoza MD
--- NOTE | 2023-09-14 11:50 | PTCARENOTE ---
Pt initially hypertensive on arrival to unit, during the 1 hour post TAVR recovery phase Cardene initiated and able to be titrated off. VSS. LT groin A line remains transduced. Weaning of RT arterial band initiated. Assessment otherwise
unchanged from prior
[2023-09-14] MEDS: COREG PO ×2 (12:03→20:57)
[2023-09-14 12:44] LABS: ACT-LR - POC 158 Seconds (116-155)
--- NOTE | 2023-09-14 12:44 | PTCARENOTE ---
ACT checked for 158, electric trucker called for sheath removal.
--- NOTE | 2023-09-14 13:15 | PTCARENOTE ---
bp dipping into 80's systolic while sleeping. Levo infusion initiated at at this time to maintain bp
--- NOTE | 2023-09-14 14:27 | PTCARENOTE ---
Left femoral Arterial line removed by Addressing Machine Operator. Pt tolerated w/o issue, hemostasis achieved. VSS.
[2023-09-14] MEDS: ANCEF 5 IV (15:46)
--- NOTE | 2023-09-14 18:13 | PTCARENOTE ---
Bilateral groins remain intact. PT adjusted to 90 degrees sitting up in bed. No bleeding or hematoma noted. Rt radial also remains intact. Will continue to monitor.
[2023-09-14] MEDS: COREG 3.125 MG PO (21:12)
--- NOTE | 2023-09-14 21:15 | PTCARENOTE ---
Patient received resting in bed watching television. Patient A+A+Ox3. No neurological deficits noted. Patient with no c/o headache, dizziness or lightheadedness. No c/o pain or discomfort. Patient wears bilateral hearing aids - Intact. No s/s
of respiratory distress. No c/o SOB. O2 2L via NC. SaO2 99%. Patient with permanent pacemaker. V-Pacing. Underlying Atrial Fibrillation. BBC. Heart rate 60's. Blood pressure 91/46 (59). Then, 101/40 (59). PA for CT Surgery notified -
Coreg 6.25 mg PO Held for tonight - Coreg 3.125 mg PO ordered and given. Normoactive bowel sounds. No BM. No c/o nausea. No vomiting. Patient with External Urinary Device (PureWick) intact - Nalini urine. Right wrist with dressing intact.
Right groin - Dressing intact - No hematoma, bleeding or oozing - Positive circulation, sensation and mobility to right lower extremity. Left groin - Dressing intact - No hematoma, bleeding or oozing - Positive circulation, sensation and mobility
to left lower extremity. Bilateral lower extremity/Ankle edema - Left>Right. Patient with no c/o back or flank pain. Assessment as documented.
[2023-09-15] VITALS (13 sets, daily range): BP systolic 105–148; BP diastolic 43–76; PULSE 60; O2SAT 93–94; BMI 26.9
--- NOTE | 2023-09-15 01:00 | PTCARENOTE ---
Patient A+A+Ox3. No neurological deficits noted. Patient resting in bed watching television. Patient given CHG bath and linens changed. Female external urinary device changed. Groins intact. Patient then wanted to try to have BM. PureWick
removed and discarded. Patient OOB to bedside commode. No BM. Positive flatus. Voided 600 ml sabino urine. Protective foam to sacrum intact. Skin protectant ointment to buttocks. Patient back to bed. No c/o pain or discomfort. Groins remain
intact. Positive, palpable pulses. Assessment as documented.
--- NOTE | 2023-09-15 04:26 | W.PN.CT ---
Today's Communication / Plan
-
-POD 1
-EKG this morning
-Echo this morning
-CBC pending
-Pradaxa and ASA
-discharge planning
Assessment / Plan
-
S/P Right trans femoral TAVR with a 26 mm Medtronic Evolut FX device with post deployment balloon dilatation POD#1
-Severe
-MR
-AF
-s/p PPM
-HTN
-Hypercholesterolemia
-Neuropathy
-Rt. carotid stenosis
-Uterine fibroids
-DJD
-Obesity
Subjective
Procedure
S/P Right trans femoral TAVR with a 26 mm Medtronic Evolut FX device with post deployment balloon dilatation performed by Dr. Last on 09/14/23
-
Date of Service: September 15, 2023
Objective Data
-
Lab Results
09/15/23 04:54
PT 22.3 Sec (11.4-14.6) H 08/30/23 12:28
INR 1.93 08/30/23 12:28
APTT 73.2 Sec (23.4-35.0) H 08/30/23 12:28
Vital Signs
Vital Signs
Temp Pulse Resp BP Pulse Ox
98.0 F 60 16 121/47 97
09/15/23 00:00 09/15/23 03:30 09/15/23 00:15 09/15/23 03:00 09/15/23 00:15
CT Intake/Output/Weight
09/14/23 09/14/23 09/15/23
06:59 18:59 06:59
Intake Total 1392.5 / 1632.5 240 / 1632.5
Output Total 600 / 1400 800 / 1400
Balance 792.5 / 232.5 -560 / 232.5
SaO2: 97
[2023-09-15 05:13] LABS: Hematocrit 28.7 % (37.0-47.0); Hemoglobin 9.6 g/dL (12.0-16.0); Mean Corp Hgb Conc. 33.4 g/dL (33.0-37.0); Mean Corpuscular Hgb 31.1 pg (27.0-31.0); Mean Corpuscular Volume 92.9 fL (81.0-99.0); Mean Platelet Volume 10.7 fL (7.4-10.4); Platelet Count 137 10^3/uL (130-400); Red Blood Cell Count 3.09 10^6/uL (4.20-5.40); Red Cell Dist. Width 13.6 % (11.5-14.5); White Blood Cell Count 4.9 10^3/uL (4.8-10.8)
--- NOTE | 2023-09-15 05:15 | PTCARENOTE ---
Patient A+A+Ox3. No neurological deficits noted. No c/o pain or discomfort. EKG completed. AM lab work collected and sent. Portable CXR completed. Groins intact. Positive circulation, sensation and mobility to extremities. OOB to chair in
AM. Assessment/Interventions as documented.
[2023-09-15 05:41] LABS: Blood Urea Nitrogen 31 mg/dl (7-17); Calcium 9.1 mg/dl (8.4-10.2); Carbon Dioxide 24 mmol/L (22-30); Chloride 104 mmol/L (98-107); Estimated Creatinine Clearance 54 ml/min; Glucose 102 mg/dl (70-99); Potassium 4.5 mmol/L (3.5-5.1); Sodium 134 mmol/L (135-145); eGFR > 60.00
--- NOTE | 2023-09-15 07:47 | W.PN.ANS.POP ---
Anesthesia Post Operative
- Anesthesia Post Op Note
Vital Signs Stable-See Nursing Note: Yes
Airway Patent: Yes
Adequate Pain Control: Yes
Change in Mental Status: No
Current Postoperative Nausea & Vomiting: No
Anesthesia Complications: No
General Anesthetic Recall: No
Unplanned Admission: No
Post Op Hydration Adequate: Yes
--- NOTE | 2023-09-15 08:45 | PTCARENOTE ---
Assumed care of patient at 0700. Pt is awake, alert, and oriented. Neuro assessment WNL. No complaints of pain at this time. Pt remains V paced with HR 60's. BP 115/53 MAP 70. Pt remains on room air, pulse oximetry 96%. Pt continues to have
nonproductive occasional moist cough. Pt tolerating PO diet. Voiding without difficulty. Bilateral groin punctures intact. Right radial intact. Pedal pulses easily palpable. Pt currently OOB in chair resting comfortably with call calderon within reach.
--- NOTE | 2023-09-15 08:52 | W.DCSUMMARY ---
Documented by User: Jo Cancino PA-C 09/15/23 13:53
Discharge Summary
Discharge Data
Date of Admission: 09/14/23
Date of Discharge: 09/15/23
Total time spent discharging patient (in min): 35
-
Pending Results: No
Hospital Course
Primary care physician:
Dr. Jb Mendoza MD.
Outpatient multimedia manager:
Dr. Kerwin Brennan MD.
Inpatient consultants:
[facility], Dr. Jin Gomez MD.
Procedures:
1. Right transfemoral transcatheter aortic valve replacement with number 26 mm Medtronic Evolut FX device with post deployment balloon dilation by Dr. Shala MD and Dr. Fran Gee MD. on 09/14/23
Primary Diagnosis:
1. Severe aortic valve stenosis, symptomatic
Secondary Diagnoses:
1. Severe aortic valve stenosis, symptomatic
2. Degenerative joint disease
3. Obesity
4. Mitral regurgitation
5. Paroxysmal atrial fibrillation
6. History of single-chamber Medtronic pacemaker implantation with generator change 2020
7. Hypertension
8. Hyperlipidemia
9. History of neuropathy and paresthesias
10. History of right carotid endarterectomy
11. History of uterine fibroids
12. History of
13. History of cholecystectomy
14. History of right cataract surgery
15. History of cardiac catheterizations
16. Pulmonary hypertension
17. Skin lesion removal
HPI:
Patient is an 83-year-old female with severe aortic stenosis, symptomatic in nature. Transcatheter aortic valve replacement computer-aided tomography scan protocol revealed acceptable anatomy for a self-expanding transcatheter aortic valve
replacement. Patient was seen in consultation by the surgeon as well as transcatheter aortic valve replacement team and deemed an appropriate candidate. She was electively admitted to [facility] to undergo the surgery described above on
the date described above.
Hospital course:
Patient tolerated the procedure well. Procedure was performed under conscious sedation. Intra-op the patient was briefly hypotensive status post transcatheter aortic valve deployment. Patient was scanned under fluoroscopic guidance while in the
cardiac catheterization lab to check for aortic dissection, which was negative. Patient remained stable and was transferred to the Cardiovascular Intensive Care Unit on Levophed with a left femoral arterial line. Levophed was successfully weaned off
and her arterial line was discontinued later that evening. Her evening dose of Lisinopril was held. On post operative day number 1, no new events occurred. Patient remained hemodynamically stable, and groins were clean, dry, and intact, bilaterally.
Morning ekg revealed a ventricular paced rhythm with underlying atrial fibrillation at 60 beats per minute. Her home medications of Aspirin 81 mg daily and Pradaxa 150 mg twice daily were resumed. Day 1 echocardiogram revealed a Medtronic Evolut
#26 mm transcatheter aortic valve with peak and mean gradients of 12/8 mmHg, mild/moderate paravalvular aortic regurgitation, moderate/severe mitral regurgitation, moderate tricuspid regurgitation, and an ejection fraction of 55-60%. When compared
to prior echocardiogram on 09/14/23 aortic insufficiency was moderate following balloon aortic valvuloplasty, then mild following transcatheter aortic valve replacement with gradients of 11/5 mmHg. She had known moderate mitral regurgitation and
severe tricuspid regurgitation on echo in 01/03/23. Patients case was discussed with attending physician Dr. González Last MD. She will be diuresed with Lasix 40 mg daily for 1 week and supplemental potassium chloride of 10 meq daily x 1 week (this
was reduced to 10 meq's due to home medication therapy with Lisinopril 40 mg every evening). While taking Lasix 40 mg daily she should hold her home dose of Lasix 20 mg Q48hrs. Once her week of Lasix 40 mg daily is completed, she can resume her home
dose of Lasix 20 mg Q48hrs. on 09/23/23. She will have a 30 day repeat echocardiogram on 10/16/23. She shold have a basic metabolic panel checked on Monday09/20/23 to evaluate her renal function and electrolytes with diuresis. Patient was
medically cleared to be discharged to home on post operative day number 1.
Home medication changes:
Please pay attention to the following medication changes:
Take Lasix 40 mg daily x7 days for post operative volume overload then resume your home dose of Lasix 20 mg Q48hrs
Take Potassium Chloride 10 meq daily with Lasix x7 days and then stop-electrolyte replacement
Please hold the following medications:
Hold home Lasix 20 mg Q48 hrs. for fluid retention/swelling for 1 week while on Lasix 40 mg daily x 7 days.
Once Lasix 40 mg daily x 7 days is complete resume taking your regular home dose of Lasix 20 mg Q48 hrs.
Resume home Lasix 20 mg Q48hrs on 09/23/23
Discharge Plan
-
Patient Disposition: Home (Routine Discharge)
Discharge Diagnosis/Procedures: TF-TAVR
Condition: Fair
Diet: Low Cholesterol and 2 Gram Sodium
Activity: As tolerated
Driving Restrictions: No driving for 1 week
Bathing Restrictions: OK to Shower
Blood Work: BMP 09/20/23 to evaluate renal function and electrolytes
Others Tests: 30 Day Follow Up Echocardiogram: 10/16/2023 at 10:20am at [facility]. Please arrive 15 minutes early to register.
Other Services: Cardiac Rehab
Wound Care: Please do not apply lotions, creams or powders to groin areas. Please monitor groin areas for increased pain, swelling, redness or drainage. Call your doctor if any occur.
Specialty Instructions: Weigh Daily- Call MD for wt gain/loss 3 lbs overnight/5 lbs in 1 week
Referrals:
CT Transitional Care Nurse [Outside] - in one to two days
(
The Cardiothoracic Transitional Care Nurse will call you to set up a visit in 1-2 days.)
Leatha Smith CRNP [Specified Professional Personl] - 10/18/23 2:20 pm
Cornell Mendoza MD [Family Provider] - in four to six weeks (Please make an appointment in four to six weeks. )
Additional Discharge Medication Instructions: Please pay attention to the following medication changes:
Take Lasix 40 mg daily x7 days for post operative volume overload then resume your home dose of Lasix 20 mg Q48hrs
Take Potassium Chloride 10 meq daily with Lasix x7 days and then stop-electrolyte replacement
Please hold the following medications:
Hold home Lasix 20 mg Q48 hrs. for fluid retention/swelling for 1 week while on Lasix 40 mg daily x 7 days.
Once Lasix 40 mg daily x 7 days is complete resume taking your regular home dose of Lasix 20 mg Q48 hrs.
Resume home Lasix 20 mg Q48hrs on 09/23/23
Prescriptions:
New
furosemide [Lasix] 40 mg tablet
40 mg PO DAILY Qty: 7 0RF
Rx Instructions:
Take Lasix 40 mg daily x 7 days then resume home dose of Lasix 20 mg Q48hrs
potassium chloride 10 mEq tablet extended release
10 meq PO DAILY Qty: 7 0RF
Rx Instructions:
Take potassium chloride 10 meq daily x 7 days with Lasix and then stop.
Continued
multivitamin 1 EACH tablet
1 tab PO QPM
aspirin 81 mg Tablet,Delayed Release (Dr/Ec)
81 mg PO DAILY Qty: 60 0RF
lisinopril 40 mg Tablet
40 mg PO QPM
rosuvastatin 5 mg Tablet
5 mg PO DAILY
biotin 5,000 mcg Tablet,Chewable
5,000 mcg PO QPM
Systane (PF) 0.4-0.3 % Dropperette
1 drp OPHTHALMIC (EYE) DAILY
carvedilol 6.25 mg Tablet
6.25 mg PO BID Qty: 60 3RF
acetaminophen 500 mg Tablet
500 mg PO Q6H PRN (Reason: pain)
docusate sodium [Colace] 100 mg Capsule
100 mg PO PRN PRN (Reason: constipation)
OcuSoft Lid Scrub Pads, Medicated
1 pad TOPICAL DAILY
dabigatran etexilate [Pradaxa] 150 MG capsule
150 mg PO BID Qty: 0 0RF
Held
furosemide 20 mg tablet
20 mg PO Q48H
Hold Instructions: Resume on 09/23/23. Hold home Lasix 20 mg every 48 hrs. for fluid retention/swelling for 1 week while on Lasix 40 mg daily x 7 days. Once Lasix 40 mg daily x 7 days is complete resume taking your regular home dose of Lasix 20
mg Q48hrs. Resume home Lasix 20 mg Q48 hrs on Monday09/23/23.
Care Plan Goals
Care Plan Goals:
Problem: Readiness for enhanced knowledge related to diagnosis and treatment plan
Goal: Understand your diagnosis and treatment plan needs, including medications if applicable.
Instructions: Know your diagnosis, underlying causes and treatment plan options, including medications if applicable. Consult with your health care team to learn about your diagnosis and treatment plan, including medications if applicable.
Discharge Date and Time
Print Language: GEORGIAN

Documented by User: MURIEL Aviles 09/15/23 10:56
Discharge Summary
Discharge Data
Date of Admission: 09/14/23
Date of Discharge: 09/15/23
Discharge Plan
-
Patient Disposition: Home (Routine Discharge)
Discharge Diagnosis/Procedures: TF-TAVR
Condition: Fair
Diet: Low Cholesterol and 2 Gram Sodium
Activity: As tolerated
Driving Restrictions: No driving for 1 week
Bathing Restrictions: OK to Shower
Blood Work: [facility] 09/20/23 to evaluate renal function and electrolytes
Others Tests: 30 Day Follow Up Echocardiogram: 10/16/2023 at 10:20am at [facility]. Please arrive 15 minutes early to register.
Other Services: Cardiac Rehab
Wound Care: Please do not apply lotions, creams or powders to groin areas. Please monitor groin areas for increased pain, swelling, redness or drainage. Call your doctor if any occur.
Specialty Instructions: Weigh Daily- Call MD for wt gain/loss 3 lbs overnight/5 lbs in 1 week
Referrals:
CT Transitional Care Nurse [Outside] - in one to two days
(
The Cardiothoracic Transitional Care Nurse will call you to set up a visit in 1-2 days.)
Leatha Smith CRNP [Specified Professional Personl] - 10/18/23 2:20 pm
Cornell Mendoza MD [Family Provider] - in four to six weeks (Please make an appointment in four to six weeks. )
Additional Discharge Medication Instructions: Please pay attention to the following medication changes:
Take Lasix 40 mg daily x7 days for post operative volume overload then resume your home dose of Lasix 20 mg Q48hrs
Take Potassium Chloride 10 meq daily with Lasix x7 days and then stop-electrolyte replacement
Please hold the following medications:
Hold home Lasix 20 mg Q48 hrs. for fluid retention/swelling for 1 week while on Lasix 40 mg daily x 7 days.
Once Lasix 40 mg daily x 7 days is complete resume taking your regular home dose of Lasix 20 mg Q48 hrs.
Resume home Lasix 20 mg Q48hrs on 09/23/23
Prescriptions:
New
furosemide [Lasix] 40 mg tablet
40 mg PO DAILY Qty: 7 0RF
Rx Instructions:
Take Lasix 40 mg daily x 7 days then resume home dose of Lasix 20 mg Q48hrs
potassium chloride 10 mEq tablet extended release
10 meq PO DAILY Qty: 7 0RF
Rx Instructions:
Take potassium chloride 10 meq daily x 7 days with Lasix and then stop.
Continued
multivitamin 1 EACH tablet
1 tab PO QPM
aspirin 81 mg Tablet,Delayed Release (Dr/Ec)
81 mg PO DAILY Qty: 60 0RF
lisinopril 40 mg Tablet
40 mg PO QPM
rosuvastatin 5 mg Tablet
5 mg PO DAILY
biotin 5,000 mcg Tablet,Chewable
5,000 mcg PO QPM
Systane (PF) 0.4-0.3 % Dropperette
1 drp OPHTHALMIC (EYE) DAILY
carvedilol 6.25 mg Tablet
6.25 mg PO BID Qty: 60 3RF
acetaminophen 500 mg Tablet
500 mg PO Q6H PRN (Reason: pain)
docusate sodium [Colace] 100 mg Capsule
100 mg PO PRN PRN (Reason: constipation)
OcuSoft Lid Scrub Pads, Medicated
1 pad TOPICAL DAILY
dabigatran etexilate [Pradaxa] 150 MG capsule
150 mg PO BID Qty: 0 0RF
Held
furosemide 20 mg tablet
20 mg PO Q48H
Hold Instructions: Resume on 09/23/23. Hold home Lasix 20 mg every 48 hrs. for fluid retention/swelling for 1 week while on Lasix 40 mg daily x 7 days. Once Lasix 40 mg daily x 7 days is complete resume taking your regular home dose of Lasix 20
mg Q48hrs. Resume home Lasix 20 mg Q48 hrs on Monday09/23/23.
Care Plan Goals
Care Plan Goals:
Problem: Readiness for enhanced knowledge related to diagnosis and treatment plan
Goal: Understand your diagnosis and treatment plan needs, including medications if applicable.
Instructions: Know your diagnosis, underlying causes and treatment plan options, including medications if applicable. Consult with your health care team to learn about your diagnosis and treatment plan, including medications if applicable.
Discharge Date and Time
Print Language: GEORGIAN
[2023-09-15] MEDS: REFRESH EYE DROPS (PF) 1 DROPS BOTH EYES (08:57)
[2023-09-15] MEDS: PRADAXA 150 MG PO (08:57)
[2023-09-15] MEDS: COREG 6.25 MG PO (08:57)
[2023-09-15] MEDS: ASPIR LOW (ENTERIC COATED) 81 MG PO (08:57)
[2023-09-15] MEDS: LASIX 20 MG PO (08:58)
[2023-09-15] MEDS: CRESTOR 5 MG PO (08:58)
--- NOTE | 2023-09-15 10:11 | W.PN.CD ---
Today's Communication / Plan
-
echo
home today
Impression / Plan
-
-Severe S/P Right trans femoral TAVR with a 26 mm Medtronic Evolut FX device with post deployment balloon dilatation POD#1
-doing well
-echo then discharge
-asa/pradaxa
-MR
-moderate
-re eval with echo today
-AF
-rate controlled
-continue pradaxa
-s/p PPM
-HTN chronic stable
-Hypercholesterolemia chronic continue rosuvastatin
-cough/pnd:
-last 8 days
-no fever chills
-lungs cta
-suspect seasonal allergy
-trial otc zyrtec (no D) /- fluticasone nasal spray
Subj
dry cough with a drip in the back of her throat presents for 8 days
Physical Exam
Vital Signs/Labs
Vital Signs
Temp Pulse Resp BP Pulse Ox
99.5 F 60 16 115/53 96
09/15/23 08:50 09/15/23 09:00 09/15/23 08:50 09/15/23 08:57 09/15/23 08:57
09/14/23 09/15/23 09/16/23
06:59 06:59 06:59
Actual Weight 75.5 kg 77.7 kg
09/15/23 04:54
09/15/23 04:54
PT 22.3 Sec (11.4-14.6) H 08/30/23 12:28
INR 1.93 08/30/23 12:28
APTT 73.2 Sec (23.4-35.0) H 08/30/23 12:28
08/30/23
12:28
[id number] Pept 2730
Physical Exam
Constitutional: No acute distress
Cardiovascular: Rhythm & rate is regular, Pedal edema is absent, JVD pressure is normal, Systolic murmur absent and Diastolic murmur absent
Respiratory: Respiratory effort normal, Lungs clear to auscul., Wheeze Absent, Crackles Absent and Rhonchi Absent
Neuro/Psych: AO x 3
Data Reviewed
-
Date of Service: September 15, 2023
EKG: Other
--- NOTE | 2023-09-15 12:27 | CM ---
Reviewed chart. Met with Mrs. Reese to review discharge plans. She states she is feeling well and maybe able to go home soon. She states she ambulated in the hallway wiith a single point cane. (150 feet). She states prior to admission she
resides alone in an apartment with an elevator. ([facility]). She states prior to admission she ambulates with a single point Cane She has a single point cane. She has a prescription plan and uses [facility]. She states her daughter resides in
[place] and will call her to check on her. We reviewed a home visit by the Cardiothoracic Transitional Care Nurse. She is agreeable to home visit. Medical work-up in progress. The discharge plan is to return home with her daughter checking
on her and a home visit by the Cardiothoracic Transitional Care Nurse when medically stable.
[2023-09-15] MEDS: LASIX 40 MG IV (13:16)
--- NOTE | 2023-09-15 13:30 | PTCARENOTE ---
Pt with no changes in assessment. Remains V paced with HR 60's. BP 114/57 MAP 72. Pulse oximetry 97% on room air. Pt OOB in chair eating lunch. 40mg IV Lasix administered per order.
--- NOTE | 2023-09-15 15:17 | PTCARENOTE ---
Pt with no changes in assessment. Voided in bathroom without difficulty. Remains V paced with HR 60's. BP 110/76 MAP 84. Pulse oximetry 98% on room air. Neuro assessment remains WNL. Groin sites remain intact with palpable pulses. Pt with discharge
order awaiting for daughter for pickup.
--- NOTE | 2023-09-15 17:40 | PTCARENOTE ---
Pt's daughter to bedside. Discharge instructions reviewed. Peripheral IV and tele pack removed. Pt's questions addressed, no further questions at this time. Pt stable at discharge. Pt escorted downstairs via wheelchair.
== END 2023-09-15 17:57 | disposition home or self-care (01) | DRG 267 ==
LOC: CVICU 05:15
PROVIDERS: Nurse Practitioner; ADMITTING PHYSICIAN Thoracic Surgery (Cardiothoracic Vascular Surgery); FAMILY PHYSICIAN Internal Medicine
PROC: 02RF38Z Replacement of Aortic Valve with Zooplastic Tissue, Percutaneous Approach (ICD-10-PCS; 2023-09-14)
DX: I35.0 Nonrheumatic aortic (valve) stenosis (principal); Z00.6 Encounter for examination for normal comparison and control in clinical research program; G62.9 Polyneuropathy, unspecified; I11.0 Hypertensive heart disease with heart failure; I48.0 Paroxysmal atrial fibrillation; E78.00 Pure hypercholesterolemia, unspecified; E66.9 Obesity, unspecified; I65.21 Occlusion and stenosis of right carotid artery; I50.9 Heart failure, unspecified; M19.90 Unspecified osteoarthritis, unspecified site; I27.20 Pulmonary hypertension, unspecified; I95.81 Postprocedural hypotension; Z68.26 Body mass index [BMI] 26.0-26.9, adult; Z79.02 Long term (current) use of antithrombotics/antiplatelets; Z79.82 Long term (current) use of aspirin; Z79.899 Other long term (current) drug therapy; Z95.0 Presence of cardiac pacemaker
CPT/HCPCS: 93308; 33361; 36415; 71045; 71046; 80048; 80053; 81003; 82248; 83036; 83880; 85025; 85027; 85347; 85610; 85730; 86850; 86900; 86901; 86920; 87070; 93005; 93306; 93321; 93325; C1769; C1894; Q9967

== ENCOUNTER → 2023-09-20 11:38 | Outpatient (REF) | payer MEDICARE, SELFPAY ==
[2023-09-20 14:28] LABS: Blood Urea Nitrogen 24 mg/dl (7-17); Calcium 9.8 mg/dl (8.4-10.2); Carbon Dioxide 25 mmol/L (22-30); Chloride 102 mmol/L (98-107); Glucose 91 mg/dl (70-99); Potassium 4.4 mmol/L (3.5-5.1); Sodium 138 mmol/L (135-145); eGFR > 60.00
== END ==
LOC: REG 11:38
PROVIDERS: ATTENDING PHYSICIAN Thoracic Surgery (Cardiothoracic Vascular Surgery); FAMILY PHYSICIAN Internal Medicine
DX: Z09 Encounter for follow-up examination after completed treatment for conditions other than malignant neoplasm (principal)
CPT/HCPCS: 36415; 80048

== ENCOUNTER → 2023-10-16 09:59 | Outpatient (REF) | payer MEDICARE, SELFPAY ==
[2023-10-16 11:47] LABS: % Basophils 1.1 % (0-2); % Eosinophils 7.2 % (0-6); % Immature Granulocytes 0.3 % (0-0.5); % Lymphocytes 25.3 % (20.5-51.1); % Monocytes 7.2 % (1.7-9.3); % Neutrophils 58.9 % (42.2-75.2); Absolute Eosinophils 0.3 10^3/uL (0-0.7); Absolute Lymphocytes 0.9 10^3/uL (1.2-3.4); Absolute Monocytes 0.3 10^3/uL (0.1-0.6); Absolute Neutrophils 2.1 10^3/uL (1.4-6.5); Hematocrit 32.1 % (37.0-47.0); Hemoglobin 10.2 g/dL (12.0-16.0); Mean Corp Hgb Conc. 31.8 g/dL (33.0-37.0); Mean Corpuscular Hgb 30.2 pg (27.0-31.0); Mean Platelet Volume 10.3 fL (7.4-10.4); Nucleated Red Blood Cells % 0 %; Platelet Count 165 10^3/uL (130-400); Red Blood Cell Count 3.38 10^6/uL (4.20-5.40); Red Cell Dist. Width 15.1 % (11.5-14.5); White Blood Cell Count 3.6 10^3/uL (4.8-10.8)
[2023-10-16 16:18] LABS: Iron 102 ug/dl (37-170)
[2023-10-16 16:27] LABS: Percent Saturation 24 % (20-50); Total Iron Binding Capacity 411 ug/dl (265-497)
== END ==
LOC: RCS 09:59
PROVIDERS: ATTENDING PHYSICIAN Internal Medicine Cardiovascular Disease; FAMILY PHYSICIAN Internal Medicine
DX: I35.0 Nonrheumatic aortic (valve) stenosis (principal); D64.9 Anemia, unspecified
CPT/HCPCS: 36415; 83540; 83550; 85025; 93306

== ENCOUNTER → 2023-12-19 10:07 | Outpatient (REF) | payer MEDICARE, SELFPAY ==
[2023-12-19 11:29] LABS: % Basophils 0.5 % (0-2); % Eosinophils 9.4 % (0-6); % Lymphocytes 27.3 % (20.5-51.1); % Monocytes 7.5 % (1.7-9.3); % Neutrophils 55.3 % (42.2-75.2); Absolute Eosinophils 0.4 10^3/uL (0-0.7); Absolute Lymphocytes 1.1 10^3/uL (1.2-3.4); Absolute Monocytes 0.3 10^3/uL (0.1-0.6); Absolute Neutrophils 2.1 10^3/uL (1.4-6.5); Hematocrit 29.4 % (37.0-47.0); Hemoglobin 10.1 g/dL (12.0-16.0); Mean Corp Hgb Conc. 34.4 g/dL (33.0-37.0); Mean Corpuscular Hgb 31.5 pg (27.0-31.0); Mean Corpuscular Volume 91.6 fL (81.0-99.0); Mean Platelet Volume 10.9 fL (7.4-10.4); Nucleated Red Blood Cells % 0 %; Platelet Count 173 10^3/uL (130-400); Red Blood Cell Count 3.21 10^6/uL (4.20-5.40); Red Cell Dist. Width 14.7 % (11.5-14.5); White Blood Cell Count 3.9 10^3/uL (4.8-10.8)
[2023-12-19 12:48] LABS: Ferritin 16.1 ng/ml (11.1-264.0)
[2023-12-19 12:59] LABS: Iron 82 ug/dl (37-170)
== END ==
LOC: RAD 10:07
PROVIDERS: ATTENDING PHYSICIAN Internal Medicine
DX: I35.0 Nonrheumatic aortic (valve) stenosis (principal); E04.1 Nontoxic single thyroid nodule; K86.2 Cyst of pancreas; R91.1 Solitary pulmonary nodule; D51.9 Vitamin B12 deficiency anemia, unspecified
CPT/HCPCS: 36415; 71260; 74170; 76536; 82728; 83540; 85025; Q9967

== ENCOUNTER → 2024-02-13 13:49 | Outpatient (REF) | payer MEDICARE, SELFPAY | LOC: DHVS 13:49 | PROVIDERS: ATTENDING PHYSICIAN Registered Nurse; FAMILY PHYSICIAN Surgery Vascular Surgery | DX: I65.23 Occlusion and stenosis of bilateral carotid arteries (principal) | CPT/HCPCS: 93880 ==

== ENCOUNTER → 2024-02-27 11:03 | Outpatient (REF) | payer MEDICARE, SELFPAY ==
[2024-02-27 12:48] LABS: % Basophils 0.7 % (0-2); % Eosinophils 5.8 % (0-6); % Immature Granulocytes 0.2 % (0-0.5); % Lymphocytes 24.5 % (20.5-51.1); % Neutrophils 60.8 % (42.2-75.2); Absolute Eosinophils 0.2 10^3/uL (0-0.7); Absolute Monocytes 0.3 10^3/uL (0.1-0.6); Absolute Neutrophils 2.5 10^3/uL (1.4-6.5); Hematocrit 29.3 % (37.0-47.0); Hemoglobin 9.8 g/dL (12.0-16.0); Mean Corp Hgb Conc. 33.4 g/dL (33.0-37.0); Mean Corpuscular Hgb 32.5 pg (27.0-31.0); Mean Platelet Volume 10.5 fL (7.4-10.4); Nucleated Red Blood Cells % 0 %; Platelet Count 173 10^3/uL (130-400); Red Blood Cell Count 3.02 10^6/uL (4.20-5.40); Red Cell Dist. Width 14.4 % (11.5-14.5); White Blood Cell Count 4.1 10^3/uL (4.8-10.8)
== END ==
LOC: REG 11:03
PROVIDERS: ATTENDING PHYSICIAN Internal Medicine
DX: D64.9 Anemia, unspecified (principal)
CPT/HCPCS: 36415; 85025

== ENCOUNTER → 2024-03-15 12:22 | Outpatient (REF) | payer MEDICARE, SELFPAY ==
[2024-03-15 13:40] LABS: % Eosinophils 7.4 % (0-6); % Lymphocytes 28.1 % (20.5-51.1); % Monocytes 5.8 % (1.7-9.3); % Neutrophils 57.7 % (42.2-75.2); Absolute Eosinophils 0.3 10^3/uL (0-0.7); Absolute Lymphocytes 1.2 10^3/uL (1.2-3.4); Absolute Monocytes 0.2 10^3/uL (0.1-0.6); Absolute Neutrophils 2.4 10^3/uL (1.4-6.5); Hemoglobin 10.5 g/dL (12.0-16.0); Mean Corp Hgb Conc. 32.8 g/dL (33.0-37.0); Mean Corpuscular Hgb 31.5 pg (27.0-31.0); Mean Corpuscular Volume 96.1 fL (81.0-99.0); Mean Platelet Volume 10.1 fL (7.4-10.4); Nucleated Red Blood Cells % 0 %; Platelet Count 183 10^3/uL (130-400); Red Blood Cell Count 3.33 10^6/uL (4.20-5.40); Red Cell Dist. Width 14.2 % (11.5-14.5); White Blood Cell Count 4.2 10^3/uL (4.8-10.8)
[2024-03-15 14:41] LABS: ALT (SGPT) 17 U/L (0-35); AST (SGOT) 31 U/L (14-36); Albumin 4.5 g/dl (3.5-5.0); Alkaline Phosphatase 68 U/L (38-126); Blood Urea Nitrogen 40 mg/dl (7-17); Calcium 10.1 mg/dl (8.4-10.2); Carbon Dioxide 24 mmol/L (22-30); Chloride 105 mmol/L (98-107); Glucose 90 mg/dl (70-99); HDL Cholesterol 76 mg/dl; Potassium 4.6 mmol/L (3.5-5.1); Sodium 141 mmol/L (135-145); Total Bilirubin 0.7 mg/dl (0.2-1.3); Total Protein 7.6 g/dl (6.3-8.2); Triglyceride 57 mg/dl (10-149); Very Low Density Lipoprotein 11 mg/dl (0-30); eGFR > 60.00
[2024-03-15 15:16] LABS: LDL Cholesterol, Calculated 58 mg/dl; Total Cholesterol 145 mg/dl (50-199)
== END ==
LOC: REG 12:22
PROVIDERS: ATTENDING PHYSICIAN Internal Medicine
DX: Z00.01 Encounter for general adult medical examination with abnormal findings (principal); Z95.0 Presence of cardiac pacemaker; Z79.01 Long term (current) use of anticoagulants; I10 Essential (primary) hypertension; E78.1 Pure hyperglyceridemia
CPT/HCPCS: 36415; 80053; 80061; 85025

== ENCOUNTER → 2024-12-24 10:14 | Outpatient (REF) | payer MEDICARE, SELFPAY ==
[2024-12-24 13:01] LABS: Blood Urea Nitrogen 34 mg/dl (7-17); Calcium 10.0 mg/dl (8.4-10.2); Carbon Dioxide 19 mmol/L (22-30); Chloride 109 mmol/L (98-107); Glucose 95 mg/dl (70-99); Potassium 4.9 mmol/L (3.5-5.1); Sodium 138 mmol/L (135-145); eGFR > 60.00
== END ==
LOC: RCS 10:14
PROVIDERS: ATTENDING PHYSICIAN Internal Medicine Cardiovascular Disease; FAMILY PHYSICIAN Internal Medicine
DX: I50.32 Chronic diastolic (congestive) heart failure (principal)
CPT/HCPCS: 36415; 80048; 93306

== ENCOUNTER → 2025-02-21 13:44 | Outpatient (REF) | payer MEDICARE, SELFPAY ==
[2025-02-21 15:14] LABS: Hematocrit 34.2 % (37.0-47.0); Hemoglobin 10.8 g/dL (12.0-16.0); Mean Corp Hgb Conc. 31.6 g/dL (33.0-37.0); Mean Corpuscular Volume 100.6 fL (81.0-99.0); Nucleated Red Blood Cells % 0 %; Platelet Count 221 10^3/uL (130-400); Red Cell Dist. Width 14.9 % (11.5-14.5)
[2025-02-21 16:53] LABS: ALT (SGPT) 17 U/L (0-35); AST (SGOT) 25 U/L (14-36); Albumin 4.4 g/dl (3.5-5.0); Alkaline Phosphatase 70 U/L (38-126); Blood Urea Nitrogen 29 mg/dl (7-17); Calcium 9.2 mg/dl (8.4-10.2); Carbon Dioxide 26 mmol/L (22-30); Chloride 104 mmol/L (98-107); Glucose 91 mg/dl (70-99); Potassium 3.6 mmol/L (3.5-5.1); Sodium 139 mmol/L (135-145); Total Protein 7.8 g/dl (6.3-8.2); eGFR > 60.00
== END ==
LOC: DHVS 13:44
PROVIDERS: ATTENDING PHYSICIAN Surgery Vascular Surgery; FAMILY PHYSICIAN Internal Medicine; OTHER PHYSICIAN Nurse Practitioner Acute Care
DX: I65.23 Occlusion and stenosis of bilateral carotid arteries (principal); L03.116 Cellulitis of left lower limb; R60.0 Localized edema
CPT/HCPCS: 36415; 80053; 85025

== ENCOUNTER → 2025-03-27 10:19 | Outpatient (REF) | payer MEDICARE, SELFPAY ==
[2025-03-27 11:28] LABS: Hematocrit 31.0 % (37.0-47.0); Hemoglobin 10.1 g/dL (12.0-16.0); Mean Corp Hgb Conc. 32.6 g/dL (33.0-37.0); Mean Corpuscular Volume 96.9 fL (81.0-99.0); Nucleated Red Blood Cells % 0 %; Platelet Count 183 10^3/uL (130-400); Red Cell Dist. Width 13.5 % (11.5-14.5)
[2025-03-27 14:23] LABS: ALT (SGPT) 15 U/L (0-35); AST (SGOT) 27 U/L (14-36); Albumin 4.4 g/dl (3.5-5.0); Alkaline Phosphatase 66 U/L (38-126); Blood Urea Nitrogen 39 mg/dl (7-17); Calcium 9.6 mg/dl (8.4-10.2); Carbon Dioxide 25 mmol/L (22-30); Chloride 103 mmol/L (98-107); Glucose 93 mg/dl (70-99); HDL Cholesterol 55 mg/dl; LDL Cholesterol, Calculated 59 mg/dl; Potassium 4.2 mmol/L (3.5-5.1); Sodium 138 mmol/L (135-145); Total Protein 7.6 g/dl (6.3-8.2); Very Low Density Lipoprotein 13 mg/dl (0-30); eGFR 56.25
== END ==
LOC: REG 10:19
PROVIDERS: ATTENDING PHYSICIAN Internal Medicine
DX: Z00.00 Encounter for general adult medical examination without abnormal findings (principal); I48.21 Permanent atrial fibrillation; I10 Essential (primary) hypertension; Z95.0 Presence of cardiac pacemaker; Z68.33 Body mass index [BMI] 33.0-33.9, adult
CPT/HCPCS: 36415; 80053; 80061; 85025